=== PATIENT | female | born 1955 | race Caucasian/White ===

== ENCOUNTER → 2024-04-21 | Outpatient (CLI) | payer MEDICAID ==
[2024-04-21 16:36] LABS: BASOPHILS % 1.1 % (0.0-2.0); EOSINOPHILS % 1.6 % (0.0-5.0); HEMATOCRIT. 38.2 % (36.0-48.0); HEMOGLOBIN. 12.7 g/dL (12.0-16.0); LYMPHOCYTES % 27.4 % (20.0-50.0); MEAN CORPUSCULAR HEMOGLOBIN 29.8 pg (28.0-32.0); MEAN CORPUSCULAR HGB CONC 33.3 g/dL (31.0-37.0); MEAN CORPUSCULAR VOLUME 89.4 fL (81.0-99.0); MEAN PLATELET VOLUME 8.8 fl (7.4-10.4); NEUTROPHILS % 62.9 % (40.0-76.0); PLATELET 203 x1000/uL (130-400); RED BLOOD CELL COUNT 4.27 mill/uL (4.2-5.4); RED CELL DISTRIBUTION WIDTH 13.1 % (11.6-14.6); WHITE BLOOD COUNT 5.9 x1000/uL (4.5-11.0)
[2024-04-21 16:43] LABS: CHLORIDE 106 mEq/L (98-107); POTASSIUM 4.5 mEq/L (3.5-5.1); SODIUM 140 mEq/L (136-145)
[2024-04-21 16:44] LABS: CALCIUM 9.9 mg/dL (8.7-10.4); CARBON DIOXIDE 29 mEq/L (21-32)
[2024-04-21 16:47] LABS: PARTIAL THROMBOPLASTIN TIME 24.3 sec (23.4-31.0); PROTHROMBIN TIME 11.4 sec (9.6-11.0)
[2024-04-21 16:49] LABS: CREATININE 1.2 mg/dL (0.6-1.0); GLUCOSE 89 mg/dL (70-105); UREA NITROGEN BLOOD 19 mg/dL (9-23)
[2024-04-21 16:51] LABS: ALANINE AMINOTRANSFERASE 33 IU/L (10-49); ALBUMIN 4.6 g/dL (3.2-4.8); ASPARTATE AMINOTRANSFERASE 35 IU/L (<34); BILIRUBIN TOTAL 0.9 mg/dL (0.1-1.0); PROTEIN TOTAL 6.9 g/dL (6.0-8.3)
== END | disposition home or self-care (01) ==
LOC: LAB 15:58
PROVIDERS: ATTEND Internal Medicine Critical Care Medicine
DX: Z01.812 Encounter for preprocedural laboratory examination (principal); R91.1 Solitary pulmonary nodule
CPT/HCPCS: 36415; 80053; 85025

== ENCOUNTER → 2024-04-30 | Day surgery (SDC) | payer MEDICAID ==
[~2024-04-30] VITALS: Ht 162.6 cm; Wt 44.9 kg
[2024-04-30] VITALS (9 sets, daily range): BP systolic 100–121; BP diastolic 40–82; PULSE 70–87; RESP 12–16
[~2024-04-30] MED LIST: FENTANYL CITRATE/PF 50MCG/ML 2ML VIAL ONE; LIDOCAINE HCL 1% 10 MG/ML 10ML VIAL ONE
[2024-04-30] MEDS: FENTANYL CITRATE/PF 50MCG/ML 2ML VIAL IV ONE (10:50)
== END | disposition home or self-care (01) ==
LOC: RAD 09:42
PROVIDERS: ATTEND Internal Medicine Critical Care Medicine
DX: J44.9 Chronic obstructive pulmonary disease, unspecified (principal)
CPT/HCPCS: 32408; 88305; 71045; J3010; J3490; 99152; 99153; G0500

== ENCOUNTER 2024-06-08 06:47 | Inpatient (IN) | payer OTHER, MEDICAID ==
[~2024-06-08] VITALS: Ht 152.4 cm; Wt 49.0 kg
[2024-06-08 11:27] VITALS: BP 105/65; PULSE 77; RESP 16; TEMP 36.1956
[2024-06-08] MEDS ORDERED: CLONIDINE 0.1MG TABLET PO PRN (15:30)
[2024-06-08] MEDS ORDERED: ONDANSETRON HCL 4MG/2ML INJ IV PRN (15:30)
[2024-06-08] MEDS ORDERED: ACETAMINOPHEN 325MG TABLET PO PRN (15:30)
[2024-06-08] MEDS ORDERED: DOCUSATE SODIUM 100MG CAPSULE PO PRN (15:30)
[2024-06-08] MEDS ORDERED: IPRATROPIUM/ALBUTEROL 0.5-3(2.5)MG/3ML NEB HHN PRN (15:30)
[2024-06-08 16:00] VITALS: BP 100/64; PULSE 76; RESP 16; TEMP 36.114; O2SAT 97
[2024-06-08 20:00] VITALS: BP 98/67; PULSE 72; RESP 20; TEMP 36.44736; O2SAT 100
[2024-06-08 21:07] LABS: EOSINOPHILS % 4.4 % (0.0-5.0); HEMATOCRIT. 35.7 % (36.0-48.0); LYMPHOCYTES % 37.1 % (20.0-50.0); MEAN CORPUSCULAR HEMOGLOBIN 30.2 pg (28.0-32.0); MEAN CORPUSCULAR HGB CONC 33.5 g/dL (31.0-37.0); MEAN CORPUSCULAR VOLUME 90.2 fL (81.0-99.0); MEAN PLATELET VOLUME 9.4 fl (7.4-10.4); MONOCYTES % 10.9 % (2.0-8.0); NEUTROPHILS % 46.6 % (40.0-76.0); PLATELET 195 x1000/uL (130-400); RED BLOOD CELL COUNT 3.96 mill/uL (4.2-5.4)
[2024-06-08 21:13] LABS: CHLORIDE 105 mEq/L (98-107); POTASSIUM 5.1 mEq/L (3.5-5.1); SODIUM 138 mEq/L (136-145)
[2024-06-08 21:14] LABS: CALCIUM 9.4 mg/dL (8.7-10.4); CARBON DIOXIDE 29 mEq/L (21-32)
[2024-06-08 21:19] LABS: GLUCOSE 77 mg/dL (70-105); UREA NITROGEN BLOOD 17 mg/dL (9-23)
[2024-06-08 21:21] LABS: ALANINE AMINOTRANSFERASE 16 IU/L (10-49); ALBUMIN 4.2 g/dL (3.2-4.8); ASPARTATE AMINOTRANSFERASE 19 IU/L (<34); BILIRUBIN TOTAL 0.8 mg/dL (0.1-1.0); PROTEIN TOTAL 6.2 g/dL (6.0-8.3)
[2024-06-08 21:46] LABS: PROTHROMBIN TIME 11.2 sec (9.6-11.0)
[2024-06-09] VITALS (19 sets, daily range): BP systolic 94–140; BP diastolic 58–85; PULSE 63–78; RESP 5–20; TEMP 36.33624–36.89184; O2SAT 97–100
[2024-06-09 07:42] LABS: CARBON DIOXIDE 26 mEq/L (21-32); CHLORIDE 108 mEq/L (98-107); POTASSIUM 4.1 mEq/L (3.5-5.1); SODIUM 139 mEq/L (136-145)
[2024-06-09 07:44] LABS: CALCIUM 9.2 mg/dL (8.7-10.4)
[2024-06-09 07:47] LABS: CREATININE 0.8 mg/dL (0.6-1.0)
[2024-06-09 07:48] LABS: GLUCOSE 77 mg/dL (70-105); UREA NITROGEN BLOOD 15 mg/dL (9-23)
[2024-06-09 08:10] LABS: BASOPHILS % 1.1 % (0.0-2.0); EOSINOPHILS % 4.1 % (0.0-5.0); HEMATOCRIT. 36.2 % (36.0-48.0); HEMOGLOBIN. 11.9 g/dL (12.0-16.0); MEAN CORPUSCULAR HEMOGLOBIN 29.6 pg (28.0-32.0); MEAN CORPUSCULAR HGB CONC 32.9 g/dL (31.0-37.0); MEAN PLATELET VOLUME 9.3 fl (7.4-10.4); MONOCYTES % 9.1 % (2.0-8.0); NEUTROPHILS % 46.7 % (40.0-76.0); PLATELET 197 x1000/uL (130-400); RED BLOOD CELL COUNT 4.02 mill/uL (4.2-5.4); RED CELL DISTRIBUTION WIDTH 13.1 % (11.6-14.6); WHITE BLOOD COUNT 4.6 x1000/uL (4.5-11.0)
[2024-06-09] MEDS: TALC 3 GM VIAL IX SCH (08:30)
[2024-06-09] MEDS: SODIUM CHLORIDE 0.9% 1000ML BAG (SEPSIS BOLUS) IV ONE (08:45)
[2024-06-09] MEDS ORDERED: BUPIVACAINE HCL/PF 0.5% (5MG/ML) 10ML ONE (09:18)
[2024-06-09] MEDS ORDERED: POLYMYXIN B SULFATE 500000 UNITS/VIAL ONE (09:18)
[2024-06-09] MEDS ORDERED: LIDOCAINE HCL 1% 20ML VIAL ONE (10:38)
[2024-06-09] MEDS ORDERED: DEXAMETHASONE 4MG/ML 1ML VIAL ONE (10:38)
[2024-06-09] MEDS ORDERED: SUCCINYLCHOLINE CHLORIDE 200MG/10ML IV ONE (10:38)
[2024-06-09] MEDS ORDERED: PROPOFOL 200MG/20ML VIAL IV ONE (10:39)
[2024-06-09] MEDS ORDERED: VECURONIUM BROMIDE 10 MG/VIAL IV ONE (10:39)
[2024-06-09] MEDS ORDERED: PHENYLEPHRINE HCL 10MG/ML 1ML IV ONE (10:56)
[2024-06-09] MEDS ORDERED: FENTANYL CITRATE/PF 50MCG/ML 2ML VIAL ONE (12:00)
[2024-06-09] MEDS ORDERED: KETOROLAC 30MG/ML VIAL ONE (13:11)
[2024-06-09] MEDS ORDERED: NEOSTIGMINE METHYLSULFATE 1MG/ML 10 ML VIAL ONE (13:14)
[2024-06-09] MEDS ORDERED: GLYCOPYRROLATE 0.2 MG/ML 2ML VIAL ONE (13:14)
[2024-06-09] MEDS: ACETAMINOPHEN 1000MG/100ML 100 ML IV NR (13:30)
[2024-06-09] MEDS ORDERED: CEFAZOLIN SODIUM 1000MG/VIAL IV SCH (14:15)
[2024-06-09] MEDS ORDERED: HYDROMORPHONE HCL/PF 1MG/ML INJ IV NR (14:15)
[2024-06-09] MEDS: HYDROMORPHONE HCL/PF 2MG/ML INJ IV NR (14:51)
[2024-06-09] MEDS: HYDROMORPHONE HCL/PF 2MG/ML INJ IV PRN (17:56)
[2024-06-09] MEDS: CEFAZOLIN 1000MG PREMIX 50 ML IV SCH (19:03)
[2024-06-09 19:22] LABS: DIFFERENTIAL COMMENT 1; HEMATOCRIT. 38.6 % (36.0-48.0); HEMOGLOBIN. 12.5 g/dL (12.0-16.0); MEAN CORPUSCULAR HEMOGLOBIN 29.9 pg (28.0-32.0); MEAN CORPUSCULAR HGB CONC 32.5 g/dL (31.0-37.0); MEAN CORPUSCULAR VOLUME 91.9 fL (81.0-99.0); MEAN PLATELET VOLUME 9.2 fl (7.4-10.4); PLATELET 190 x1000/uL (130-400); RED CELL DISTRIBUTION WIDTH 13.2 % (11.6-14.6); WHITE BLOOD COUNT 12.1 x1000/uL (4.5-11.0)
[2024-06-09 19:30] LABS: CHLORIDE 108 mEq/L (98-107); POTASSIUM 4.2 mEq/L (3.5-5.1); SODIUM 138 mEq/L (136-145)
[2024-06-09 19:31] LABS: CARBON DIOXIDE 22 mEq/L (21-32)
[2024-06-09 19:32] LABS: CALCIUM 9.1 mg/dL (8.7-10.4)
[2024-06-09 19:36] LABS: CREATININE 0.7 mg/dL (0.6-1.0); GLUCOSE 132 mg/dL (70-105); UREA NITROGEN BLOOD 12 mg/dL (9-23)
[2024-06-09 19:44] LABS: PLATELET ESTIMATE NORMAL
[2024-06-10] VITALS (25 sets, daily range): BP systolic 92–128; BP diastolic 53–101; PULSE 68–85; RESP 9–28; TEMP 36.61404–37.61412; O2SAT 97–100
[2024-06-10 06:05] LABS: CHLORIDE 105 mEq/L (98-107); POTASSIUM 4.5 mEq/L (3.5-5.1); SODIUM 137 mEq/L (136-145)
[2024-06-10 06:06] LABS: CALCIUM 9.2 mg/dL (8.7-10.4); CARBON DIOXIDE 25 mEq/L (21-32)
[2024-06-10 06:11] LABS: CREATININE 0.8 mg/dL (0.6-1.0); GLUCOSE 134 mg/dL (70-105); UREA NITROGEN BLOOD 18 mg/dL (9-23)
[2024-06-10 06:14] LABS: BASOPHILS % 0.4 % (0.0-2.0); HEMATOCRIT. 33.3 % (36.0-48.0); HEMOGLOBIN. 11.2 g/dL (12.0-16.0); LYMPHOCYTES % 8.4 % (20.0-50.0); MEAN CORPUSCULAR HEMOGLOBIN 30.1 pg (28.0-32.0); MEAN CORPUSCULAR HGB CONC 33.7 g/dL (31.0-37.0); MEAN CORPUSCULAR VOLUME 89.5 fL (81.0-99.0); MEAN PLATELET VOLUME 9.1 fl (7.4-10.4); MONOCYTES % 9.3 % (2.0-8.0); NEUTROPHILS % 81.9 % (40.0-76.0); PLATELET 202 x1000/uL (130-400); RED BLOOD CELL COUNT 3.72 mill/uL (4.2-5.4); RED CELL DISTRIBUTION WIDTH 12.9 % (11.6-14.6); WHITE BLOOD COUNT 9.2 x1000/uL (4.5-11.0)
[2024-06-10] MEDS ORDERED: NALOXONE HCL 0.4MG/ML VIAL IV PRN (10:15)
[2024-06-11] VITALS (39 sets, daily range): BP systolic 86–123; BP diastolic 53–91; PULSE 76–102; RESP 8–22; TEMP 36.78072–37.61412; O2SAT 93–100
[2024-06-11] MEDS: ACETAMINOPHEN 325MG TABLET PO PRN (02:08)
[2024-06-11 05:41] LABS: POTASSIUM 5.3 mEq/L (3.5-5.1)
[2024-06-11 05:42] LABS: CALCIUM 8.9 mg/dL (8.7-10.4)
[2024-06-11 05:58] LABS: BASOPHILS % 0.5 % (0.0-2.0); EOSINOPHILS % 0.7 % (0.0-5.0); HEMOGLOBIN. 10.8 g/dL (12.0-16.0); LYMPHOCYTES % 14.7 % (20.0-50.0); MEAN CORPUSCULAR HEMOGLOBIN 30.2 pg (28.0-32.0); MEAN CORPUSCULAR HGB CONC 33.7 g/dL (31.0-37.0); MEAN CORPUSCULAR VOLUME 89.7 fL (81.0-99.0); MEAN PLATELET VOLUME 8.8 fl (7.4-10.4); MONOCYTES % 9.5 % (2.0-8.0); NEUTROPHILS % 74.6 % (40.0-76.0); PLATELET 181 x1000/uL (130-400); RED BLOOD CELL COUNT 3.57 mill/uL (4.2-5.4); RED CELL DISTRIBUTION WIDTH 13.1 % (11.6-14.6); WHITE BLOOD COUNT 7.6 x1000/uL (4.5-11.0)
[2024-06-11] MEDS: HYDROCODONE/ACETAMINOPHEN 5/325MG TABLET PO PRN (07:45)
[2024-06-11] MEDS: GUAIFENESIN 600MG ER TABLET PO SCH (13:28)
[2024-06-12] VITALS (47 sets, daily range): BP systolic 74–140; BP diastolic 28–77; PULSE 71–103; RESP 8–21; TEMP 36.16956–37.11408; O2SAT 93–100
[2024-06-12 06:05] LABS: BASOPHILS % 0.7 % (0.0-2.0); EOSINOPHILS % 2.2 % (0.0-5.0); HEMOGLOBIN. 10.1 g/dL (12.0-16.0); LYMPHOCYTES % 13.3 % (20.0-50.0); MEAN CORPUSCULAR HEMOGLOBIN 29.9 pg (28.0-32.0); MEAN CORPUSCULAR HGB CONC 33.6 g/dL (31.0-37.0); MEAN CORPUSCULAR VOLUME 89.1 fL (81.0-99.0); MEAN PLATELET VOLUME 8.6 fl (7.4-10.4); MONOCYTES % 9.3 % (2.0-8.0); NEUTROPHILS % 74.5 % (40.0-76.0); PLATELET 173 x1000/uL (130-400); RED BLOOD CELL COUNT 3.36 mill/uL (4.2-5.4); RED CELL DISTRIBUTION WIDTH 12.8 % (11.6-14.6); WHITE BLOOD COUNT 6.8 x1000/uL (4.5-11.0)
[2024-06-12 06:07] LABS: CHLORIDE 101 mEq/L (98-107); POTASSIUM 3.8 mEq/L (3.5-5.1); SODIUM 134 mEq/L (136-145)
[2024-06-12 06:08] LABS: CARBON DIOXIDE 27 mEq/L (21-32)
[2024-06-12 06:09] LABS: CALCIUM 8.8 mg/dL (8.7-10.4)
[2024-06-12 06:13] LABS: CREATININE 0.7 mg/dL (0.6-1.0); GLUCOSE 124 mg/dL (70-105); UREA NITROGEN BLOOD 13 mg/dL (9-23)
[2024-06-12] MEDS: HYDROMORPHONE HCL/PF 2MG/ML INJ IV PRN (10:06)
[2024-06-13] VITALS (12 sets, daily range): BP systolic 100–130; BP diastolic 64–87; PULSE 73–88; RESP 12–22; TEMP 36.33624–36.89184; O2SAT 94–98
[2024-06-13 08:02] LABS: CARBON DIOXIDE 27 mEq/L (21-32); CHLORIDE 103 mEq/L (98-107); SODIUM 137 mEq/L (136-145)
[2024-06-13 08:04] LABS: BASOPHILS % 0.9 % (0.0-2.0); EOSINOPHILS % 2.5 % (0.0-5.0); HEMATOCRIT. 33.1 % (36.0-48.0); HEMOGLOBIN. 11.2 g/dL (12.0-16.0); LYMPHOCYTES % 22.4 % (20.0-50.0); MEAN CORPUSCULAR HEMOGLOBIN 30.1 pg (28.0-32.0); MEAN CORPUSCULAR HGB CONC 33.7 g/dL (31.0-37.0); MEAN CORPUSCULAR VOLUME 89.3 fL (81.0-99.0); MEAN PLATELET VOLUME 8.8 fl (7.4-10.4); MONOCYTES % 9.6 % (2.0-8.0); NEUTROPHILS % 64.6 % (40.0-76.0); PLATELET 229 x1000/uL (130-400); RED BLOOD CELL COUNT 3.71 mill/uL (4.2-5.4); RED CELL DISTRIBUTION WIDTH 12.8 % (11.6-14.6); WHITE BLOOD COUNT 5.7 x1000/uL (4.5-11.0)
[2024-06-13 08:07] LABS: CREATININE 0.7 mg/dL (0.6-1.0)
[2024-06-13 08:08] LABS: GLUCOSE 88 mg/dL (70-105); UREA NITROGEN BLOOD 8 mg/dL (9-23)
[2024-06-13] MEDS: DOCUSATE SODIUM 250MG CAPSULE PO SCH (18:31)
[2024-06-13] MEDS: BISACODYL 5MG TABLET PO PRN (20:55)
[2024-06-14] VITALS (12 sets, daily range): BP systolic 93–133; BP diastolic 52–87; PULSE 70–82; RESP 12–23; TEMP 36.114–36.72516; O2SAT 94–98
[2024-06-15] VITALS (13 sets, daily range): BP systolic 104–132; BP diastolic 48–78; PULSE 63–88; RESP 13–24; TEMP 36.28068–36.89184; O2SAT 94–100
[2024-06-15 08:19] LABS: CALCIUM 9.1 mg/dL (8.7-10.4); CHLORIDE 102 mEq/L (98-107); POTASSIUM 3.5 mEq/L (3.5-5.1); SODIUM 138 mEq/L (136-145)
[2024-06-15 08:20] LABS: CARBON DIOXIDE 30 mEq/L (21-32)
[2024-06-15 08:26] LABS: CREATININE 0.9 mg/dL (0.6-1.0); GLUCOSE 138 mg/dL (70-105); UREA NITROGEN BLOOD 12 mg/dL (9-23)
[2024-06-15 08:56] LABS: EOSINOPHILS % 4.8 % (0.0-5.0); HEMATOCRIT. 33.6 % (36.0-48.0); HEMOGLOBIN. 11.2 g/dL (12.0-16.0); LYMPHOCYTES % 21.1 % (20.0-50.0); MEAN CORPUSCULAR HEMOGLOBIN 29.8 pg (28.0-32.0); MEAN CORPUSCULAR HGB CONC 33.3 g/dL (31.0-37.0); MEAN CORPUSCULAR VOLUME 89.5 fL (81.0-99.0); MEAN PLATELET VOLUME 8.5 fl (7.4-10.4); MONOCYTES % 10.1 % (2.0-8.0); PLATELET 270 x1000/uL (130-400); RED BLOOD CELL COUNT 3.75 mill/uL (4.2-5.4); WHITE BLOOD COUNT 4.6 x1000/uL (4.5-11.0)
[2024-06-15] MEDS ORDERED: NALOXONE HCL 0.4MG/ML VIAL IV PRN (12:15)
[2024-06-15] MEDS: HYDROCODONE/ACETAMINOPHEN 5/325MG TABLET PO PRN (12:16)
[2024-06-16] VITALS (12 sets, daily range): BP systolic 95–134; BP diastolic 55–89; PULSE 66–93; RESP 13–22; TEMP 36.50292–37.66968; O2SAT 96–100
[2024-06-16] MEDS: LIDOCAINE 5% PATCH TOP SCH (08:47)
[2024-06-16] MEDS ORDERED: MORPHINE SULFATE 2 MG/ML INJ (NOT FOR IM USE) IV PRN (13:00)
[2024-06-16] MEDS: MORPHINE SULFATE 2 MG/ML INJ (NOT FOR IM USE) IV PRN (21:56)
[2024-06-17] VITALS (12 sets, daily range): BP systolic 89–121; BP diastolic 64–83; PULSE 68–101; RESP 12–24; TEMP 36.44736–37.05852; O2SAT 95–100
[2024-06-17 05:59] LABS: CARBON DIOXIDE 29 mEq/L (21-32); CHLORIDE 104 mEq/L (98-107); POTASSIUM 4.8 mEq/L (3.5-5.1); SODIUM 138 mEq/L (136-145)
[2024-06-17 06:01] LABS: CALCIUM 9.2 mg/dL (8.7-10.4)
[2024-06-17 06:04] LABS: CREATININE 0.8 mg/dL (0.6-1.0)
[2024-06-17 06:05] LABS: GLUCOSE 95 mg/dL (70-105)
[2024-06-17 06:06] LABS: UREA NITROGEN BLOOD 11 mg/dL (9-23)
[2024-06-17 06:20] LABS: BASOPHILS % 1.1 % (0.0-2.0); EOSINOPHILS % 4.6 % (0.0-5.0); HEMATOCRIT. 34.3 % (36.0-48.0); HEMOGLOBIN. 11.3 g/dL (12.0-16.0); LYMPHOCYTES % 23.3 % (20.0-50.0); MEAN CORPUSCULAR HEMOGLOBIN 29.6 pg (28.0-32.0); MEAN CORPUSCULAR HGB CONC 32.9 g/dL (31.0-37.0); MEAN CORPUSCULAR VOLUME 90.2 fL (81.0-99.0); MEAN PLATELET VOLUME 8.2 fl (7.4-10.4); MONOCYTES % 12.1 % (2.0-8.0); NEUTROPHILS % 58.9 % (40.0-76.0); PLATELET 270 x1000/uL (130-400); RED BLOOD CELL COUNT 3.81 mill/uL (4.2-5.4); RED CELL DISTRIBUTION WIDTH 13.2 % (11.6-14.6); WHITE BLOOD COUNT 6.6 x1000/uL (4.5-11.0)
[2024-06-18] VITALS: BP 103/67; PULSE 64; RESP 13; TEMP 36.44736; O2SAT 97
[2024-06-18 02:00] VITALS: BP 98/49; PULSE 78; RESP 12; O2SAT 93
[2024-06-18 04:00] VITALS: BP 108/64; PULSE 65; RESP 17; TEMP 36.72516; O2SAT 96
[2024-06-18 06:00] VITALS: BP 102/67; PULSE 68; RESP 21; O2SAT 98
[2024-06-18 11:03] VITALS: BP 102/67; PULSE 68; TEMP 98.1
== END 2024-06-18 14:41 | disposition home or self-care (01) | DRG 120 ==
LOC: 7EST 11:10 → CVICU 06-09 13:38 → 5EST 06-12 15:20
PROVIDERS: ADMIT Internal Medicine; ATTEND Internal Medicine
PROC: 0BTF0ZZ Resection of Right Lower Lung Lobe, Open Approach (ICD-10-PCS; 2024-06-09)
PROC: 3E0T3BZ Introduction of Anesthetic Agent into Peripheral Nerves and Plexi, Percutaneous Approach (ICD-10-PCS; 2024-06-09)
PROC: 0BJ08ZZ Inspection of Tracheobronchial Tree, Via Natural or Artificial Opening Endoscopic (ICD-10-PCS; 2024-06-09)
PROC: 0BT60ZZ Resection of Right Lower Lobe Bronchus, Open Approach (ICD-10-PCS; 2024-06-09)
PROC: 07B70ZZ Excision of Thorax Lymphatic, Open Approach (ICD-10-PCS; 2024-06-09)
PROC: 0W9930Z Drainage of Right Pleural Cavity with Drainage Device, Percutaneous Approach (ICD-10-PCS; 2024-06-11)
PROC: 0WP930Z Removal of Drainage Device from Right Pleural Cavity, Percutaneous Approach (ICD-10-PCS; principal; 2024-06-17)
DX: C34.31 Malignant neoplasm of lower lobe, right bronchus or lung (principal); E78.5 Hyperlipidemia, unspecified; J43.9 Emphysema, unspecified; J95.811 Postprocedural pneumothorax; I10 Essential (primary) hypertension; Y84.8 Other medical procedures as the cause of abnormal reaction of the patient, or of later complication, without mention of misadventure at the time of the procedure; E87.5 Hyperkalemia; K59.00 Constipation, unspecified; I25.10 Atherosclerotic heart disease of native coronary artery without angina pectoris; Z87.891 Personal history of nicotine dependence; Z85.118 Personal history of other malignant neoplasm of bronchus and lung
CPT/HCPCS: 36415; 71045; 80048; 80053; 82378; 85025; 86850; 86900; 86920; 88305; 88307; 88312; 88331; 93005; C1893; J0330; J0690; J1100; J1170; J1885; J2270; J2704; J2710; J3010; J3490; J7030; J0131

== ENCOUNTER → 2024-06-24 | Outpatient (CLI) | payer MEDICAID | END | disposition home or self-care (01) | LOC: RAD 10:57 | PROVIDERS: ATTEND Internal Medicine Critical Care Medicine | DX: Z01.818 Encounter for other preprocedural examination (principal); J44.9 Chronic obstructive pulmonary disease, unspecified | CPT/HCPCS: 71046 ==

== ENCOUNTER → 2024-06-25 | Outpatient (CLI) | payer MEDICAID | END | disposition home or self-care (01) | LOC: RAD 11:17 | PROVIDERS: ATTEND Internal Medicine Critical Care Medicine | DX: J44.9 Chronic obstructive pulmonary disease, unspecified (principal); J94.8 Other specified pleural conditions | CPT/HCPCS: 71046 ==